=== PATIENT | female | born 1995 | race Asian ===

== ENCOUNTER 2017-10-03 16:30 | Emergency (ER) | payer BC ==
[~2017-10-03] VITALS: Ht 170.2 cm; Wt 72.6 kg
[2017-10-03 16:39] VITALS: BP_SYST 129
--- NOTE | 2017-10-03 17:53 | NUR ---
Patient to [facility] for evaluation. Side rails up. Report given to MARGE Mane
--- NOTE | 2017-10-03 17:56 | NUR ---
Martine Tabares [employer] SECURITY OFFICER examining patient
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
[2017-10-03] MEDS ORDERED: KETOROLAC TROMETHAMINE 60 MG/2 ML VIAL IM ONE (18:15)
[2017-10-03 18:46] VITALS: BP_SYST 122
--- NOTE | 2017-10-03 18:46 | NUR ---
Patient given written and verbal discharge instructions and verbalizes understanding. ER MD discussed with patient the results and treatment provided. Patient in stable condition. ID arm band removed. Rx of Motrin and Soma given. Patient educated on pain management and to follow up with PMD. Pain Scale 2/10 tolerable for pt. Opportunity for questions provided and answered.
== END 2017-10-03 18:46 | disposition home or self-care (01) ==
LOC: SED 16:30
DX: S16.1XXA Strain of muscle, fascia and tendon at neck level, initial encounter (principal); R03.0 Elevated blood-pressure reading, without diagnosis of hypertension; V89.2XXA Person injured in unspecified motor-vehicle accident, traffic, initial encounter; Y93.89 Activity, other specified; Y92.488 Other paved roadways as the place of occurrence of the external cause; Y99.8 Other external cause status
CPT/HCPCS: 36415; 84703; 96372; 99283; J1885